=== PATIENT | female | born 1955 | race Caucasian/White ===

== ENCOUNTER 2020-07-23 09:29 | Outpatient (CLI) | payer BC, SELFPAY ==
--- NOTE | ~2020-07-23 | MM_ITS ---
EXAMINATION: MM screening yajaira BI w corbin HISTORY: Screening TECHNIQUE: Craniocaudal and mediolateral oblique 3-D tomosynthesis images were obtained and synthetic 2-D images were generated. CAD analysis was submitted and interpreted. COMPARISON: Comparison to multiple prior studies sequentially, with oldest reviewed study dated 09/2018. BREAST PARENCHYMAL COMPOSITION: There are scattered areas of fibroglandular density. FINDINGS: There is no evidence of suspicious mass, calcification, or architectural distortion to sugg est malignancy in either breast. There has been no suspicious interval change. IMPRESSION: 1. No mammographic evidence of malignancy. 2. Recommend routine screening mammography in one year. BI-RADS Category 1: Negative Reviewed, dictated and finalized at location A. PUSHER
== END 2020-07-23 09:30 | disposition home or self-care (01) ==
LOC: ANHIMG 09:32
PROVIDERS: PCP Family Medicine; Visit Provider Nurse Practitioner Obstetrics & Gynecology
DX: Z12.31 Encounter for screening mammogram for malignant neoplasm of breast (principal)
CPT/HCPCS: 77063; 77067

== ENCOUNTER 2020-08-20 13:25 | Outpatient (CLI) | payer BC, SELFPAY ==
--- NOTE | ~2020-08-20 | DEXA_ITS ---
Bone Density Report Name: Isa Yap Age: 65 Sex: Female Ethnicity: White Date of : 1955 Indication: postmenopausal; height loss; hysterectomy; Referring Provider: Luisito, Herlinda Hassan Study: Bone densitometry was performed. Exam Date: August 20, 2020 Accession number: [id number] Bone Density: Region BMD T-score Z-score Classification AP Spine (L2, L3, L4) 0.943 -1.2 0.5 Osteopenia Femoral Neck (Left) 0.566 -2.5 -1.1 Osteoporosis Total Hip (Left) 0.681 -2.1 -1.0 Osteopenia Total Hip Bilateral Avg 0.683 -2.1 -0.9 Osteopenia Femoral Neck (Right) 0.590 -2.3 -0.9 Osteopenia Total Hip (Right) 0.685 -2.1 -0.9 Osteopenia World Health Organization criteria for BMD impression classify patients as: Normal (T-score at or above -1.0), Osteopenia (T-score between -1.0 and -2.5), or Osteoporosis (T-score at or below -2.5). 10-year Fracture Risk: FRAX not reported because: Some T-score for Spine Total or Hip Total or Femoral Neck at or below -2.5 Clinical Information Provided by Patient: Smokes Has used the following medications: Evista (i.e. raloxifene), Vitamin D, Calcium Has the following medical conditions: Hysterectomy Patient maximum height was 68 Menopause Age: 41 No regular weight bearing exercise Drinks caffeinated beverages Onset of menses at age 14 Number of children 3 Impression: The patient has osteoporosis, based on the Left Femoral Neck T-score. The patient has risk factors, including: smoking. Discussion: INCREASED RISK OF FRACTURE. BONE DENSITY IS UNDESIRABLY LOW AT ONE OR MORE SKELETAL SITES, CONSISTENT WITH POSTMENOPAUSAL OSTEOPOROSIS. This patient's lowest T-score meets the World Health Organization's (WHO) criteria for osteoporosis at one or more sites (T-score -2.5 or below). In untreated patients, the risk of osteoporotic fracture increases approximately two-fold for each 1.0 SD decrease in T-score. Low bone density is not the only risk factor for fracture; also consider factors such as patient's age, frailty or poor health, risk of falling, risk of injury, previous osteoporotic fracture, family history of osteoporosis, cigarette smoking, low body weight, etc. Not everyone with low bone mineral density has osteoporosis; osteomalacia and other metabolic bone disorders should also be considered. Patients who have osteoporosis should be evaluated for specific diseases and conditions (secondary causes) that may cause or contribute to bone loss. The [place] [employer] Endocrinologists (AACE) and National Osteoporosis Foundation (NOF) recommend pharmacologic intervention for all postmenopausal women whose T-score is in this range. The patient should follow a healthful lifestyle (good nutrition with adequate calcium and vitamin D, and appropriate weight-bearing exercise). Fo
== END 2020-08-20 13:26 | disposition home or self-care (01) ==
LOC: ANHIMG 13:28
PROVIDERS: PCP Family Medicine; Visit Provider Nurse Practitioner Obstetrics & Gynecology
DX: Z78.0 Asymptomatic menopausal state (principal); M85.88 Other specified disorders of bone density and structure, other site; M81.0 Age-related osteoporosis without current pathological fracture; M85.852 Other specified disorders of bone density and structure, left thigh; M85.851 Other specified disorders of bone density and structure, right thigh
CPT/HCPCS: 77080

== ENCOUNTER 2021-10-02 14:50 | Outpatient (CLI) | payer MEDICARE, SELFPAY ==
--- NOTE | ~2021-10-02 | MM_ITS ---
EXAMINATION: MM screening yajaira BI w corbin HISTORY: Screening TECHNIQUE: Craniocaudal and mediolateral oblique 3-D tomosynthesis images were obtained and synthetic 2-D images were generated. CAD analysis was submitted and interpreted. COMPARISON: Comparison to multiple prior studies sequentially, with oldest reviewed study dated 07/2015. BREAST PARENCHYMAL COMPOSITION: The breasts are almost entirely fatty. FINDINGS: There is no evidence of suspicious mass, calcification, or architectural distortion to sugg est malignancy in either breast. There has been no suspicious interval change. IMPRESSION: 1. No mammographic evidence of malignancy. 2. Recommend routine screening mammography in one year. BI-RADS Category 1: Negative Reviewed, dictated and finalized at location A. N MILL WORKER
== END 2021-10-02 14:51 | disposition home or self-care (01) ==
LOC: ANHIMG 14:53
PROVIDERS: PCP Family Medicine; Visit Provider Nurse Practitioner Obstetrics & Gynecology
DX: Z12.31 Encounter for screening mammogram for malignant neoplasm of breast (principal)
CPT/HCPCS: 77063; 77067

== ENCOUNTER 2021-10-23 07:35 | Outpatient (CLI) | payer MEDICARE, SELFPAY ==
[2021-10-23 07:55] LABS: Basophils Absolute Auto 0.1 K/mm3 (0.0-0.1); Basophils Percent Auto 1.1 % (0.2-1.2); Eosinophils Absolute Auto 0.1 K/mm3 (0-0.3); Eosinophils Percent Auto 1.3 % (0-4.4); Hematocrit 44.5 % (37.0-47.0); Hemoglobin 14.7 g/dL (12.0-15.0); Immature Granulocyte Absolute 0.03 K/mm3 (0.00-0.031); Immature Granulocyte Percent A 0.4 % (0-0.5); Lymphocytes Absolute Auto 1.95 K/mm3 (0.9-3.2); Mean Corpuscular Hemoglobin 29.3 pg (26-34); Mean Corpuscular Volume 88.6 fl (80-100); Mean Platelet Volume 9.4 fl (7.4-10.4); Monocytes Absolute Auto 0.6 K/mm3 (0.1-0.6); Monocytes Percent Auto 7.9 % (2.6-8.5); Neutrophils Absolute Auto 4.8 K/mm3 (1.3-6.7); Neutrophils Percent Auto 63.3 % (45.5-73.1); Platelet Count Result 302 k/mm3 (150-375); Red Blood Count 5.02 M/mm3 (4.2-5.4); Red Cell Distribution Width 15.3 % (11.5-14.5); White Blood Count 7.5 K/mm3 (4.5-10.0)
[2021-10-23 08:15] LABS: Alanine Aminotransferase 17 U/L (4-35); Albumin Level 3.3 g/dL (3.5-5.1); Alkaline Phosphatase 122 U/L (38-126); Anion Gap 4 mmol/L (8-16); Aspartate Amino Transferase 25 U/L (14-36); Bilirubin,Total 0.2 mg/dL (0.2-1.3); Blood Urea Nitrogen 17 mg/dL (7-17); Calcium 8.5 mg/dL (8.4-10.2); Carbon Dioxide 30 mmol/L (22-30); Chloride 105 mmol/L (98-107); Cholesterol 210 mg/dL (0-200); Estimated Glomerular Filt Rate > 60; Glucose 97 mg/dL (65-110); HDL Direct 34 mg/dL; Potassium 3.8 mmol/L (3.4-5.0); Sodium 139 mmol/L (137-145); Triglycerides 173 mg/dL (<150)
[2021-10-23 08:26] LABS: LDL Cholesterol Direct 121 mg/dL
== END 2021-10-23 07:36 | disposition home or self-care (01) ==
LOC: ANHLAB 07:38
PROVIDERS: PCP Family Medicine; Visit Provider Physician Assistant Medical
DX: I10 Essential (primary) hypertension (principal); E78.2 Mixed hyperlipidemia
CPT/HCPCS: 36415; 80053; 80061; 84443; 85025

== ENCOUNTER 2022-03-10 10:06 | Outpatient (CLI) | payer MEDICARE, SELFPAY ==
[2022-03-10 10:34] LABS: Alanine Aminotransferase 18 U/L (6-35); Cholesterol 197 mg/dL (0-200); Creatine Kinase 44 U/L (30-135); HDL Direct 36 mg/dL; Triglycerides 194 mg/dL (<150)
[2022-03-10 10:45] LABS: LDL Cholesterol Direct 109 mg/dL
== END 2022-03-10 10:07 | disposition home or self-care (01) ==
LOC: ANHLAB 10:10
PROVIDERS: PCP Family Medicine; Visit Provider Nurse Practitioner Family
DX: E78.2 Mixed hyperlipidemia (principal)
CPT/HCPCS: 36415; 80061; 82550; 84460

== ENCOUNTER → 2022-04-02 10:36 | Outpatient (CLI) | payer MEDICARE, SELFPAY ==
--- NOTE | ~2022-04-02 | XR_ITS ---
EXAMINATION: XR knee RT 2V DATE: 04/02/2022 10:50 INDICATION: Right knee pain TECHNIQUE: Two views of the right knee were obtained. COMPARISON: None. FINDINGS: Alignment is normal. No fracture or osteochondral lesion. There is a moderate size knee blanca nt effusion. There is moderate patellofemoral and medial compartmental osteoarthritis. There is mild osteoarthritis of the lateral compartment. Calcified atherosclerosis is noted. IMPRESSION: 1. Tricompartmental osteoarthritis and moderate size knee joint effusion without acute osseous abnorm ality. Reviewed, dictated and finalized at location B. IMPRESSION: 1. Tricompartmental osteoarthritis and moderate size knee joint effusion withou t acute osseous abnormality.
== END ==
PROVIDERS: PCP Family Medicine; Visit Provider Nurse Practitioner Family
DX: M17.11 Unilateral primary osteoarthritis, right knee (principal); M25.461 Effusion, right knee
CPT/HCPCS: 73560

== ENCOUNTER 2022-11-30 13:40 | Outpatient (CLI) | payer MEDICARE, SELFPAY ==
--- NOTE | ~2022-11-30 | MM_ITS ---
EXAMINATION: MM screening yajaira BI w corbin HISTORY: Screening mammogram, family history of breast cancer in her mother. TECHNIQUE: Craniocaudal and mediolateral oblique 3-D tomosynthesis images were obtained and synthetic 2-D images were generated. CAD analysis was submitted and interpreted. COMPARISON: 10/02/2021, 07/23/2020, 06/26/2019 BREAST PARENCHYMAL COMPOSITION: The breasts are almost entirely fatty. FINDINGS: No suspicious mass, calcification, or architectural distortion are identified in either charlie ast to suggest malignancy. There has been no suspicious interval change. IMPRESSION: 1. No mammographic evidence of malignancy. 2. Recommend routine screening mammography in one year. BI-RADS Category 1: Negative Reviewed, dictated and finalized at location A.
== END 2022-11-30 13:41 | disposition home or self-care (01) ==
LOC: ANHIMG 13:43
PROVIDERS: PCP Family Medicine; Visit Provider Nurse Practitioner Obstetrics & Gynecology
DX: Z12.31 Encounter for screening mammogram for malignant neoplasm of breast (principal)
CPT/HCPCS: 77063; 77067

== ENCOUNTER → 2023-01-28 09:41 | Outpatient (CLI) | payer MEDICARE, SELFPAY ==
--- NOTE | ~2023-01-28 | CT_ITS ---
EXAMINATION: CT sinus wo con DATE: 01/28/2023 09:56 INDICATION: Chronic sinusitis TECHNIQUE: Computed tomography (CT) of the paranasal sinuses was performed without intravenous contra st. Coronal reconstructions were obtained. Iterative reconstruction technique was employed. The dose- length product was 419.24 mGy-cm. COMPARISON: None FINDINGS: Complete opacification of the left maxillary sinus which appears to be due to combination of peripher al mucosal thickening with small amount of associated calcification and more central lower density mu cous. There are associated thickened peripheral sclerotic rosa consistent with chronic sinusitis. Th ere is moderate thinning and medial bulging of the right maxillary sinus wall consistent with mucocel e. There is occlusion of the left ostiomeatal unit. The right ostiomeatal unit remains patent. No muc osal thickening throughout the remainder of the paranasal sinuses. Bilateral orbits are normal. Bilat eral mastoid air cells and middle ear cavities are clear. The brain appears unremarkable. IMPRESSION: 1. Chronic left maxillary sinusitis with mucocele which opacifies the entire sinus and with remodelin g and mild medial bulging of the medial wall. Reviewed, dictated and finalized at location B. IMPRESSION: 1. Chronic left maxillary sinusitis with mucocele which opacifies the entire si nus and with remodeling and mild medial bulging of the medial wall.
== END ==
PROVIDERS: PCP Family Medicine; Visit Provider Otolaryngology
DX: J32.0 Chronic maxillary sinusitis (principal)
CPT/HCPCS: 70486

== ENCOUNTER 2024-02-15 15:29 | Outpatient (CLI) | payer MEDICARE, SELFPAY ==
--- NOTE | ~2024-02-15 | MM_ITS ---
EXAMINATION: MM screening yajaira BI w corbin HISTORY: Screening TECHNIQUE: Craniocaudal and mediolateral oblique 3-D tomosynthesis images were obtained and synthetic 2-D images were generated. CAD analysis was submitted and interpreted. COMPARISON: Comparison to multiple prior studies sequentially, with oldest reviewed study dated 03/2017. BREAST PARENCHYMAL COMPOSITION: Not dense: There are scattered areas of fibroglandular density. FINDINGS: There is no evidence of suspicious mass, calcification, or architectural distortion to sugg est malignancy in either breast. There has been no suspicious interval change. IMPRESSION: 1. No mammographic evidence of malignancy. 2. Recommend routine screening mammography in one year. BI-RADS Category 1: Negative Reviewed, dictated and finalized at location B.
== END 2024-02-15 15:30 | disposition home or self-care (01) ==
LOC: ANHIMG 15:30
PROVIDERS: PCP Family Medicine; Visit Provider Family Medicine
DX: Z12.31 Encounter for screening mammogram for malignant neoplasm of breast (principal)
CPT/HCPCS: 77063; 77067

== ENCOUNTER 2024-06-29 07:15 | Outpatient (CLI) | payer MEDICARE, SELFPAY ==
[2024-06-29 07:59] LABS: Basophils Absolute Auto 0.1 K/mm3 (0.0-0.1); Basophils Percent Auto 0.7 % (0.2-1.2); Eosinophils Absolute Auto 0.1 K/mm3 (0-0.3); Eosinophils Percent Auto 1.6 % (0-4.4); Hematocrit 43.8 % (37.0-47.0); Hemoglobin 13.9 g/dL (12.0-15.0); Immature Granulocyte Absolute 0.04 K/mm3 (0.00-0.031); Immature Granulocyte Percent A 0.5 % (0-0.5); Lymphocytes Percent Auto 16.3 % (18.3-44.2); Mean Corpuscular HGB Conc 31.7 g/dl (32-36); Mean Corpuscular Hemoglobin 28.4 pg (26-34); Mean Corpuscular Volume 89.6 fl (80-100); Mean Platelet Volume 9.7 fl (7.4-10.4); Monocytes Absolute Auto 0.5 K/mm3 (0.1-0.6); Monocytes Percent Auto 6.9 % (2.6-8.5); Neutrophils Absolute Auto 5.5 K/mm3 (1.3-6.7); Platelet Count Result 312 k/mm3 (150-375); Red Blood Count 4.89 M/mm3 (4.2-5.4); Red Cell Distribution Width 15.9 % (11.5-14.5); White Blood Count 7.4 K/mm3 (4.5-10.0)
[2024-06-29 08:05] LABS: Alanine Aminotransferase 22 U/L (6-35); Albumin Level 3.5 g/dL (3.5-5.1); Alkaline Phosphatase 144 U/L (38-126); Anion Gap -1 mmol/L (4-12); Aspartate Amino Transferase 27 U/L (14-36); Bilirubin,Total 0.5 mg/dL (0.2-1.3); Blood Urea Nitrogen 14 mg/dL (7-17); Carbon Dioxide 32 mmol/L (22-30); Chloride 110 mmol/L (98-107); Cholesterol 231 mg/dL (0-200); Estimated Glomerular Filt Rate > 60; Glucose 100 mg/dL (65-110); HDL Direct 35 mg/dL; Sodium 141 mmol/L (137-145); Triglycerides 196 mg/dL (<150)
[2024-06-29 08:16] LABS: LDL Cholesterol Direct 142 mg/dL
== END 2024-06-29 07:16 | disposition home or self-care (01) ==
PROVIDERS: PCP Family Medicine; Visit Provider Nurse Practitioner Adult Health
DX: E78.2 Mixed hyperlipidemia (principal); I10 Essential (primary) hypertension; Z13.29 Encounter for screening for other suspected endocrine disorder
CPT/HCPCS: 36415; 80053; 80061; 84443; 85025

== ENCOUNTER 2025-03-08 09:31 | Outpatient (CLI) | payer MEDICARE, SELFPAY ==
--- NOTE | ~2025-03-08 | MM_ITS ---
EXAMINATION: MM screening yajaira BI w corbin HISTORY: Screening TECHNIQUE: Craniocaudal and mediolateral oblique 3-D tomosynthesis images were obtained and synthetic 2-D images were generated. CAD analysis was submitted and interpreted. COMPARISON: Comparison to multiple prior studies sequentially, with oldest reviewed study dated 05/26. BREAST PARENCHYMAL COMPOSITION: Not dense: There are scattered areas of fibroglandular density. FINDINGS: There is no evidence of suspicious mass, calcification, or architectural distortion to sugg est malignancy in either breast. There has been no suspicious interval change. IMPRESSION: 1. No mammographic evidence of malignancy. 2. Recommend routine screening mammography in one year. BI-RADS Category 1: Negative Reviewed, dictated and finalized at location A.
--- OUTSIDE RECORDS SUMMARY | 2025-03-08 09:37 | XMS_ITS | Encounter Summary ---
Author Organization [facility] Address [address] [place] [address] Phone Care Team Providers Care Farmworker Brooder Farm Name Role Phone James Mccartney MD Unavailable Chas Jeronimo MD Primary Care Provider [phone] Balaji Campbell MD Unavailable [phone] Encounter Details Date Type Department Care Team (Late st Contact Info) Description 09/23/2022 Treatment [facility] [address] [facility] [address] [place] [address] Cecilio Sanchez MD [address] [id number] Social History Tobacco Use Types Packs/Day Years Used Date Smoking Tobacco: Every Day Cigarettes 1 51.6 Started: 1972 Smokeless Tobacco: Never Alcohol Use Standard Drinks/Week Comments Yes 0 (1 standard drink = 0.6 oz pur e alcohol) social Comments No Sex and Gender Information Value Date Recorded Sex Assigned at Not on file Legal Sex Female 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 Gender Identity Not on file Sexual Orientation Not on file documented as of this encounter Plan of Treatment Not on file documented as of this encounter Visit Diagnoses Not on filedocumented in this encounter Care Teams Farmworker Brooder Farm Relationship Specialty Start Date End Date Chas Jeronimo MD [address] [place] [id number] PCP - General Family Medicine 09/18/18 James Mccartney MD [address] [place] [address] Referring Physician Obstetrics and Gynecology 09/18/18 Balaji Campbell MD [phone] [place] [address] Surgeon Colon and Rectal Surgery 07/07/22 documented as of this encounter
--- OUTSIDE RECORDS SUMMARY | 2025-03-08 09:37 | XMS_ITS | Encounter Summary ---
Author Organization [facility] Address [address] [place] [address] Care Team Providers Care Night Club Manager Name Role Phone Unavailable Primary Care Provider Unavailabl e Encounter Details Date Type Department Care Team (Late st Contact Info) Description 08/08/2024 Lab Requisition [facility] - DermPath Lab [address] [place] [phone] Chas Jeronimo MD [address] [place] [address] Social History Tobacco Use Types Packs/Day Years Used Date Smoking Tobacco: Never Assessed Comments Unknown Sex and Gender Information Value Date Recorded Sex Assigned at Not on file Legal Sex Female 2:43 PM TURNER MACHINE OPERATOR Gender Identity Not on file Sexual Orientation Not on file documented as of this encounter Plan of Treatment Not on file documented as of this encounter Procedures Procedure Name Priority Date/Time Associated Diagnosis Comments DERMATOPATHOLOGY Routine 08/07/2024 3:33 AM TURNER MACHINE OPERATOR documented in this encounter Results * DERMATOPATHOLOGY (08/07/2024 3:33 AM TURNER MACHINE OPERATOR) Case Report Dermatopathology Report Case: [id number] Authorizing Provider: Chas Jeronimo MD Collected: 08/07/2024 03:33 AM Ordering Location: [facility] Physician [facility] - Received: 08/08/2024 03:21 PM DermPath Lab Pathologist: Heide Gomez MD Specimen: Skin, left breast 12:35 PM TURNER MACHINE OPERATOR DERMATOPATHOLOGY LABORATORY Final Diagnosis Specimen A. SKIN, left breast: SEBORRHEIC KERATOSIS (L82.1) 12:35 PM TURNER MACHINE OPERATOR DERMATOPATHOLOGY LABORATORY at 1235 TURNER MACHINE OPERATOR Clinical History Changing Lesion Check margins 12:35 PM [facility] DERMATOPATHOLOGY LABORATORY Gross Description Specimen A: Received is one formalin filled container labeled with the patient's name and designated left breast. The specimen consists of a non-oriented ellipse of skin measuring [id number] mm. The epidermal surface is unremarkable. The margin is inked green. The 12 o'clock and 6 o'clock tips are submitted in cassette 1. The remainder of the ellipse is serially sectioned and submitted in cassette 2. Jar 0. 12:35 PM [facility] DERMATOPATHOLOGY LABORATORY Microscopic Description Specimen A. SKIN, left breast: Sections show an acanthotic lesion composed of relatively uniform keratinocytes. There is hyperkeratosis and pseudo horn cysts formation. 12:35 PM [facility] DERMATOPATHOLOGY LABORATORY Disclaimer An external and internal positive and negative controls are appropriate for the histochemical, immunohistochemical and immunofluorescence stain(s) in this case (if any), except where stated explicitly. The performance characteristics of the stain(s) cited in this report were developed and its performance characteristic determined by the Dermatopathology Laboratory at [facility], directed by Dr. Rory Wylie. These tests need not be, and therefore are not, approved by the [place] Food and Drug Administration. The tests are used for clinical purposes. Billing Codes Specimen Charges Stain Charges 89900 1 12:35 PM [facility] DERMATOPATHOLOGY LABORATORY Embedded Images 12:35 PM [facility] DERMATOPATHOLOGY LABORATORY Pathology/Cytolo gy TISSUE SPECIMEN FROM SKIN / Unknown 08/07/2024 3:33 AM TURNER MACHINE OPERATOR 08/08/2024 3:21 PM TURNER MACHINE OPERATOR us Chasjesús Jeronimo MD LAB - PATHOLOGY/CYTOLOGY CLARA SETHI Final Result DERMATOPATHOLOGY LABORATORY [facility] - Department of Dermatology [address] [phone] documented in this encounter Visit Diagnoses Not on filedocumented in this encounter
--- OUTSIDE RECORDS SUMMARY | 2025-03-08 09:37 | XMS_ITS | Encounter Summary ---
Author Organization [facility] Address [address] [place] [address] Phone Care Team Providers Care Auto Service Representative Name Role Phone James Mccartney MD Unavailable Chas Jeronimo MD Primary Care Provider Balaji Campbell MD Unavailable [phone] Encounter Details Date Type Department Care Team (Late st Contact Info) Description 08/20/2020 Orders Only [facility] Scanning, Provider Social History Tobacco Use Types Packs/Day Years Used Date Smoking Tobacco: Every Day Cigarettes 1 51.6 Started: 1972 Smokeless Tobacco: Never Alcohol Use Standard Drinks/Week Comments Yes 0 (1 standard drink = 0.6 oz pur e alcohol) social Comments No Sex and Gender Information Value Date Recorded Sex Assigned at Not on file Legal Sex 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 Gender Identity Not on file Sexual Orientation Not on file documented as of this encounter Plan of Treatment Not on file documented as of this encounter Procedures Procedure Name Priority Date/Time Associated Diagnosis Comments SCAN - RADIOLOGY/IMAGING 08/20/2020 documented in this encounter Results * SCAN - RADIOLOGY/IMAGING (08/20/2020) Anatomical Region Laterality Modality Other us Provider Scanning Final Result documented in this encounter Visit Diagnoses Not on filedocumented in this encounter Care Teams Auto Service Representative Relationship Specialty Start Date End Date Chas Jeronimo MD [address] [place] [address] PCP - General Family Medicine 09/18/18 James Mccartney MD [address] [facility] [place] [address] Referring Physician Obstetrics and Gynecology 09/18/18 Balaji Campbell MD [phone] [place] [address] Surgeon Colon and Rectal Surgery 07/07/22 documented as of this encounter
--- OUTSIDE RECORDS SUMMARY | 2025-03-08 09:37 | XMS_ITS | Clinical Summary ---
Author Organization [facility] Address [address] [place] [address] Care Team Providers Care New Grad Rn Name Role Phone James Mccartney MD Unavailable [phone] Chas Jeronimo MD Primary Care Provider Balaji Campbell MD Unavailable [phone] Allergies Active Allergy Reactions Criticality Noted Date Comments Doxycycline Nausea & Vomiting Low 07/04/2023 Levofloxacin Other (See comments) Low 10/05/2018 Chest heaviness Pheniramine Nausea & Vomiting Low 07/04/2023 Phenyltoloxamine Unknown Low 07/04/2023 Polyhistamine Ppa Unknown 10/05/2018 Medications loratadine (CLARITIN) 10 mg tabletIndicatio ns:Allergic Rhinitis Take 1 tablet (10 mg total) by mouth daily with breakfast Active montelukast (SINGULAIR) 10 mg tabletIndicatio ns:Allergic Rhinitis Take 1 tablet (10 mg total) by mouth nightly Active olmesartan-hydr ochlorothiazide (BENICAR HCT) 20-12.5 mg per tabletIndicatio ns:hypertension Take 1 tablet by mouth daily with breakfast Active pseudoephedrine (SUDAFED) 30 mg tabletIndicatio ns:Nasal Congestion Take 1 tablet (30 mg total) by mouth every 4 (four) hours as needed for congestion Active ascorbic acid (vitamin C) 1,000 mg tabletIndicatio ns:supplement Take 1 tablet (1,000 mg total) by mouth every morning Super C supplementL Vit A, C, D2, Zinc Active OREGANO OIL ORALIndications :supplement Take 1 tablet by mouth every morning Active multivitamin capsuleIndicati ons:Vitamin Deficiency Prevention Take 1 capsule by mouth every morning Centrum silver 50 plus Active glucosamine HCl 500 mg tablet Take 1 tablet by mouth every morning Joint health supplement with collagen Active oxyCODONE (ROXICODONE) 5 mg immediate release tabletIndicatio ns:Pain Take 1 tablet (5 mg total) by mouth every 4 (four) hours as needed for pain 5 tablet 4 Active Additional Information Patient not taking.Reported on 01/01/2025 naproxen (NAPROSYN) 500 mg tablet Take 1 tablet (500 mg total) by mouth daily 4 Active fluticasone propionate (FLONASE) 50 mcg/actuation nasal sprayIndication s:Chronic maxillary sinusitis Administer 1 spray into each nostril 2 (two) times a day 1 each 11 4 Active sodium, potassium & mag sulfates (Suprep Bowel Prep Kit) 17.5-3.13-1.6 gram recon solnIndications :Bowel Evacuation Drink first half of prep at 6:00 pm the night before procedure. Drink second half of prep 4 hours prior to leaving home for procedure. 354 mL 5 Active amLODIPine (NORVASC) 5 mg tablet Take 1 tablet (5 mg total) by mouth daily 4 Active acetaminophen-c odeine (TYLENOL with CODEINE #3) 300-30 mg per tablet Take 1 tablet by mouth 5 Active azelastine (ASTELIN) 137 mcg (0.1 %) nasal spray Administer 1 spray into each nostril 2 (two) times a day Use in each nostril as directed 60 mL 11 5 Active azithromycin (Zithromax Z-Moiz) 250 mg tablet Take 2 tablets the first day, then 1 tablet daily for 4 days. 6 tablet 5 Active Active Problems Problem Noted Date Diagnosed Date Screening for malignant neoplasm of colon 2024 Tobacco dependency 08/26/2023 Chronic maxillary sinusitis 06/10/2023 Rectal bleeding 09/19/2022 Age-related osteoporosis wit hout current pathological fracture 09/17/2022 Screen for colon cancer 10/19/2018 Overview (10/19/2018): Added automatically from request for surgery [id number] Colovaginal fistula 10/05/2018 Resolved Problems Problem Noted Date Diagnosed Date Resolved Date Malignant neoplasm of colon 10/31/2018 11/02/2018 Overview (10/31/2018): Added automatically from request for surgery [id number] Encounters Date Type Department Care Team Description 01/01/2025 10:00 AM CDT Office Visit [facility] Orthopaedic Surgery [address] [place] [address] Ale Benavides PA Primary osteoarthritis of right knee (Primary Dx) 12/11/2024 [facility] - [facility] ENT [address] [place] [address] [place] [address] Melissa Wright MD 12/07/2024 7:45 PM CDT - 12/07/2024 11:59 PM CDT Hospital Encounter [facility] [address] [place] [address] Sphenoid sinusitis, unspecified chronicity Discharge Disposition: Discharge to home or self care 12/07/2024 11:20 AM CDT Office Visit [facility] ENT [address] [place] [address] Melissa Wright MD Sphenoid sinusitis, unspecified chronicity (Primary Dx); Chronic maxillary sinusitis; Recurrent sinus infections; Tobacco dependency from Last 3 Months Surgical History Surgery Date Site/Laterality Comments HYSTERECTOMY 07/25/1995 - 07/24/1996 COLONOSCOPY 08/25/2018 - 09/21/2018 SECTION 07/25/1978 - 07/24/1979 SECTION 07/25/1982 - 07/24/1983 TUBAL LIGATION 07/25/1985 - 07/24/1986 SIGMOIDECTOMY 11/17/2018 Segmental small bowel resection, vaginal repair SINUS SURGERY 07/25/2023 - 08/24/2023 Medical History Medical History Date Comments Hypertension Allergic rhinitis Rectovaginal fistula 2013 Family history of complicati on of anesthesia Mother had awareness during prior surgery. [place] JOLLA (hard of hearing) Wears bila teral hearing aides Sinusitis 1960 Family History Medical History Relation Name Comments Allergies Brother yanni pandey Hearing loss Brother yanni pandey Heart disease Father Breast cancer Mother vi katherin Cancer Mother vi katherin Hip fracture Neg Hx Osteoporosis Neg Hx Relation Name Status Comments Brother yanni pandey Alive Father Mother vi katherin Social History Tobacco Use Types Packs/Day Years Used Date Smoking Tobacco: Every Day Cigarettes 1 51.6 Started: 1972 Smokeless Tobacco: Never Tobacco Cessation:Ready to Q uit: Not Asked; Counseling Given: Not Answered Alcohol Use Standard Drinks/Week Comments Yes 0 (1 standard drink = 0.6 oz pur e alcohol) social AUDIT-C Answer Date Recorded Q1: How often do you have a drink containing alc ohol? Monthly or less 09/17/2024 Q2: How many drinks containi ng alcohol do you have on a typical day when you are drinking? 1 or 2 09/17/2024 Q3: How often do you have si x or more drinks on one occasion? Never 09/17/2024 Personal Safety Answer Date Recorded Have you ever been in or are you currently in a harmful physical or emotional relationship or is someone making you feel afraid or unsafe? 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 Gender Identity Not on file Sexual Orientation Not on file Obstetrics History Comments S/p Hysterectomy ~1998 Last Filed Vital Signs Vital Sign Reading Time Taken Comments Blood Pressure 153/97 09/17/2024 10:20 AM ESTATE PLANNING COUNSELOR Pulse 93 09/17/2024 10:25 AM ESTATE PLANNING COUNSELOR Temperature 36.3 C (97.3 F) 09/17/2024 9:48 AM ESTATE PLANNING COUNSELOR Respiratory Rate 22 09/17/2024 10:25 AM ESTATE PLANNING COUNSELOR Oxygen Saturation 99% 09/17/2024 10:25 AM ESTATE PLANNING COUNSELOR Inhaled Oxygen Concentration - - Weight 87.1 kg (192 lb) 09/17/2024 7:45 AM ESTATE PLANNING COUNSELOR Height 170.2 cm (5' 7) 09/17/2024 7:45 AM ESTATE PLANNING COUNSELOR Body Mass Index 30.07 09/17/2024 7:45 AM ESTATE PLANNING COUNSELOR Plan of Treatment Health Maintenance Due Date Last Done Comments Breast Cancer Screening-Mammogram 1955 Depression Screening 1955 Hepatitis C Screening 1955 DTaP/Tdap/Td Vaccine (1 - Tdap) 1967 Hepatitis B Screening 1974 Pneumococcal vaccine 65+ (1 of 2 - PCV) 1975 Lung Cancer Screening 2006 Zoster Vaccine (1 of 2) 2006 Well Visit 65+ 2021 Osteoporosis Screening-Bone Density Scan 08/02/2024 08/02/2022 Influenza Vaccine (#1) 2025 Fall Risk Assessment 09/17/2025 09/17/2024 Colon Cancer Screening-Colonoscopy 09/17/20342024, 10/31/2018 Colon Cancer Screening-CT Colonography Discontinued , 10/31/2018 Colon Cancer Screening-DNA Stool Discontinued 09/17/19, 10/31/2018 Colon Cancer Screening-FIT Discontinued 09/17/2024, Colon Cancer Screening-Sigmoidoscopy Discontinued 08/26, 10/31/2018 Procedures Procedure Name Priority Date/Time Associated Diagnosis Comments OK ARTHROCENTESIS ASPIR&/INJ MAJOR JT/BURSA W/O US Routine 01/01/2025 10:00 AM CDT Primary osteoarthritis of right knee AEROBIC AND ANAEROBIC CULTURE AND GRAM STAIN Routine 12/07/2024 7:45 PM CDT Sphenoid sinusitis, unspecified chronicity COLONOSCOPY 09/17/2024 8:52 AM ESTATE PLANNING COUNSELOR DEXA AXIAL SKELETON BONE DENSITY 1 OR MORE SITES Schedule Routine, Read Routine (OP Routine) 08/02/2022 12:53 PM ESTATE PLANNING COUNSELOR Screening for osteoporosis from Last 3 Months or Most Recently Relevant to Health Maintenance Results * OK ARTHROCENTESIS ASPIR&/INJ MAJOR JT/BURSA W/O US (01/01/2025 10:00 AM CDT) Narrative Ale Benavides PA - 01/01/2025 10:00 AM CDT Ale Benavides PA 01/01/2025 11:03 AM Large Joint Injection: R knee Performed by: Ale Benavides PA Authorized by: Ale Benavides PA Large Joint Injection/Aspiration: Consent Given by: Patient Site marked: the procedure site was marked Verbal consent obtained: Yes Supporting Documentation: Indications: Pain Procedure Details: Location: Knee Site: R knee Prep: patient was prepped using a clean technique Needle Size: 21 G Approach: Anterolateral Ultrasound guided: No Fluroscopic guidance: No Medications: 30 mg hyaluronate sodium, cross-linked 30 mg/3 mL Patient tolerance: Patient tolerated the procedure well with no immediate complications Ale JEAN IN CLINIC/BEDSIDE OR DERABLES Final Result * (ABNORMAL) Aerobic and anaerobic culture and gram stain Abscess Sinus, sphenoid, right (12/07/2024 7:45 PM CDT) Direct Specimen Exam Stain: Abundant polymorphonuclear leukocytes seen. No organisms seen. Report Final Report: Rare Mixed microorganisms. Includes the following: Rare Streptococcus pneumoniae Moxifloxacin susceptibility results can be inferred from gatifloxacin susceptibility testing. (.) [facility] Organism STREPTOCOCCUS PNEUMONIAE [facility] Organism MIXED MICROORGANISMS. [facility] Abscess (Sinus, sphenoid, right) 12/07/2024 7:45 PM CDT 12/07/2024 8:33 PM CDT Narrative [facility] - 12/11/2024 10:08 AM CDT Testing performed by [facility] ([phone]) Specimens submitted from normally sterile body sites will have all bacterial morphotypes identified. Specimens that contain grossly mixed jermain and/or are from body sites that are not normally sterile will be examined for Staphylococcus aureus, Pseudomonas aeruginosa, beta-hemolytic strep, vancomycin-resistant Enterococcus, Bacteroides, Parabacteroides, Clostridium perfringens and fungus. If any of these are isolated, the organism will be reported. Current interpretive data was last revised on 2019. Organism Antibiotic Method Susceptibility Streptococcus pneumoniae Gatifloxacin (ZHEN) INTERPRETATION Susceptible Streptococcus pneumoniae Penicillin (ZHEN) - meningitis (ZHEN) INTERPRETATION Susceptible Streptococcus pneumoniae Penicillin (ZHEN) - non-meningitis (ZHEN) INTERPRETATION Susceptible Streptococcus pneumoniae Penicillin (ZHEN) - oral (ZHEN) INTERPRETATION Susceptible Streptococcus pneumoniae Azithromycin (ZHEN) INTERPRETATION Susceptible Streptococcus pneumoniae Tetracycline (ZHEN) INTERPRETATION Susceptible Streptococcus pneumoniae Trimethoprim with Sulfamethoxazole (ZHEN) INTERPRETATION Susceptible Streptococcus pneumoniae Ceftriaxone(ZHEN) - meningitis (ZHEN) INTERPRETATION Susceptible Streptococcus pneumoniae Ceftriaxone (ZHEN) - non-meningitis (ZHEN) INTERPRETATION Susceptible Streptococcus pneumoniae Vancomycin (ZHEN) INTERPRETATION Susceptible us Melissa Wright MD LAB MICROBIOLOGY - GENERAL ORDERABLES Final Result Performing Organization Address City/State/ZIP [place] Phone Number [facility] [place] [address] * Colonoscopy (09/17/2024 8:52 AM ESTATE PLANNING COUNSELOR) Anatomical Region Laterality Modality Other Narrative Procedure Note Balaji Campbell MD - 09/17/2024 8:52 AM CST ENDOSCOPY LAB Patient Name: Isa Pandey Procedure Date: 09/17/2024 8:52 AM Date of : 1955 Admit Type: Outpatient Age: 69 Gender: Female Attending MD: Balaji Campbell M.D. Room: [facility] ENDOSCOPY ROOM 02 Note Status: Finalized Procedure: Colonoscopy Indications: Last colonoscopy 5 years ago, Rectal bleeding Providers: Balaji Campbell M.D. Referring MD: Chas F. Schueler, M.D. Medicines: Monitored Anesthesia Care Complications: No immediate complications. Estimated Blood Loss: Estimated blood loss: none. Procedure: Pre-Anesthesia Assessment: - Immediately prior to administration ofmedications, the patient was re-assessed for adequacy to receive sedatives. The benefits, risks and alternatives of theprocedure and sedation were discussed and informed consentwas obtained. All questions were answered. Please referto the signed informed consent document in the medical record. The scope was passed under direct vision.The [id number] was introduced through the anusand advanced to the cecum, identified by appendiceal orifice and ileocecal valve. The colonoscopy was performed without difficulty. The patient tolerated the procedure well. The quality of the bowel preparation was evaluated using the BBPS (BostonBowel Preparation Scale) with scores of: Right Colon = 2 (minor amount of residual staining, small fragmentsof stool and/or opaque liquid, but mucosa seen well), Transverse Colon = 3 (entire mucosa seen well withno residual staining, small fragments of stool oropaque liquid) and Left Colon = 2 (minor amount ofresidual staining, small fragments of stool and/or opaque liquid, but mucosa seen well). The total BBPS score equals 7. The quality of the bowel preparation was good. The bowel preparation used was SUPREP viasplit dose instruction. Findings: The perianal and digital rectal examinations were normal. Two sessile polyps were found in the transverse colon. The polypswere 3 to 4 mm in size. These polyps were removed with a cold snare.Resection and retrieval were complete. To prevent bleeding after thepolypectomy, one hemostatic clip was successfully placed. There was no bleeding at the end of the procedure. A 2 mm polyp was found in the descending colon. The polyp wassessile. The polyp was removed with a jumbo cold forceps. Resection andretrieval were complete. There was evidence of a prior end-to-end colo-rectal anastomosis inthe recto-sigmoid colon. This was patent and was characterized by healthy appearing mucosa. The anastomosis was traversed. The exam was otherwise without abnormality on direct and retroflexion views. Impression: - Two 3 to 4 mm polyps in the transverse colon, removed with a cold snare. Resected and retrieved. Clip was placed. - One 2 mm polyp in the descending colon, removedwith a jumbo cold forceps. Resected and retrieved. - Patent end-to-end colo-rectal anastomosis, characterized by healthy appearing mucosa. - The examination was otherwise normal on directand retroflexion views. Recommendation: - Await pathology results. - Repeat colonoscopy in 5 years for surveillance. Balaji Campbell MD Balaji Campbell M.D. 09/17/2024 9:45:54 AM Number of Addenda: 0 Note Initiated On: 09/17/2024 8:52 AM us Balaji Campbell MD ENDOSCOPY PROCEDURES Fi nal Result * Dexa Axial Skeleton Bone Density 1 or 2 Site (08/02/2022 12:53 PM ESTATE PLANNING COUNSELOR) Anatomical Region Laterality Modality Body N/A Radiographic Nimo ging Narrative 08/04/2022 9:58 AM ESTATE PLANNING COUNSELOR Patient Name: Isa Pandey Date of : 1955 Date of scan: 08/02/2022 Bone mineral density was performed on a HoloMobile Location, IP Discovery Densitometer. Based on machine cross-calibration and precision studies the least significant changes of this densitometer is 0.024 g/cm2 at the spine, 0.020 g/cm2 at the total proximal femur, and 0.014g/cm2 at the forearm. HISTORY: This is a 67 y.o. postmenopausal female with a history of osteoporosis. She reports that she has been smoking cigarettes. She started smoking about 49 years ago. She has been smoking an average of 1 pack per day. She has never used smokeless tobacco. Currently on treatment with vitamin D and raloxifene (Evista) and previously treated with alendronate (Fosamax) and zoledronic acid (Reclast). INDICATIONS: Menopause status, treatment monitoring, and history of osteoporosis. FINDINGS: BONE MINERAL DENSITY OF THE LUMBAR SPINE Bone Mineral Density (BMD) of the lumbar spine was measured from L1-L4 and the average density was calculated to be 0.981 gm/cm2. This corresponds to a T-score (standard deviations from the mean of young adults) of -0.6. There is no previous study available for comparison. BONE MINERAL DENSITY OF THE PROXIMAL FEMUR Bone Mineral Density (BMD) of the left hip total was found to be 0.701 gm/cm2. This corresponds to a T-score standard deviations from the mean of young adults of -2.0. Femoral neck is 0.565 gm/cm2 with a T-score (standard deviations from the mean of young adults) of -2.6. There is no previous study available for comparison. BONE MINERAL DENSITY OF THE FOREARM Bone Mineral density (BMD) of the right proximal 1/3 of the radius measures 0.560 gm/cm2. This corresponds to a T-score (standard deviations from the mean of young adults) of -2.2. There is no previous study available for comparison. A forearm bone density study was performed in addition to the study because of forearm protocol. See attached detailed TBS report. SUMMARY: Bone mineral density shows evidence of osteoporosis and marked increase risk of fracture. ADDITIONAL COMMENTS: Postmenopausal Women and Men Over 50: Diagnostic criteria: Osteoporosis: BMD at or below -2.5 T-score; Osteopenia (low bone mass): BMD between -1.0 and -2.5 T-score. If the patient has a history of a fragility fracture, a fracture that occurred with trauma equivalent to a fall from a standing position or less, then the diagnosis is osteoporosis regardless of bone density. The history and data sections of the bone mineral density scan were prepared by Radha Santoyo(Melchor) SHEA who is accredited by the International Society of Clinical Densitometry. The overall patient assessment and scan interpretation were performed by Cecilio Sanchez MD who is certified by the International Society of Clinical Densitometry. [id number] us Cecilio Sanchez MD IMG DXA PROCEDURES Final Result from Last 3 Months or Most Recently Relevant to Health Maintenance Insurance MEDICARE AETNA SENIOR SUPPLEMENT MEDICARE AETNA SENIOR SUPPLEMENT Advance Directives For more information, please contact: [phone] * Full Code (Latest Code Status on File) Date Activated Date Inactivated Comments 09/17/2024 7:29 AM 09/17/2024 2:54 PM * Full Code Date Activated Date Inactivated Comments 11/17/2018 4:06 PM 11/20/2018 5:54 PM * Full Code Date Activated Date Inactivated Comments 10/31/2018 10:14 AM 10/31/2018 4:18 PM Care Teams New Grad Rn Relationship Specialty Start Date End Date Chas Jeronimo MD [address] [place] [address] PCP - General Family Medicine 09/18/18 James Mccartney MD [address] [place] [address] Referring Physician Obstetrics and Gynecology 09/18/18 Balaji Campbell MD [id number] [place] [address] Surgeon Colon and Rectal Surgery 07/07/22
--- OUTSIDE RECORDS SUMMARY | 2025-03-08 09:37 | XMS_ITS ---
Author Organization [facility] Address [address] [place] [address] Care Team Providers Care News Assistant Name Role Phone James Mccartney MD Unavailable [phone] Chas Jeronimo MD Primary Care Provider Balaji Campbell MD Unavailable [phone] Active Problems Problem Noted Date Diagnosed Date Screening for malignant neoplasm of colon 2024 Tobacco dependency 08/26/2023 Chronic maxillary sinusitis 06/10/2023 Rectal bleeding 09/19/2022 Age-related osteoporosis wit hout current pathological fracture 09/17/2022 Screen for colon cancer 10/19/2018 Overview (10/19/2018): Added automatically from request for surgery [id number] Colovaginal fistula 10/05/2018 Current Treatment and Therapy Plans No current plan information found. Other Current Plans Zoledronic Acid (Reclast) Infusion* Plan Start Date:09/17/2022 Plan Provider:Cecilio Sanchez MD Linked Problems Age-related osteoporosis wit hout current pathological fracture Treatment Medications No medications scheduled. Past Treatment and Therapy Plans No past plan information found. Lifetime Dose Tracking * Chemical Lifetime Dose Automatic Entry Manual Entr y DLP 810 mGycm 810 mGycm 0 mGycm Resolved Problems Problem Noted Date Diagnosed Date Resolved Date Malignant neoplasm of colon 10/31/2018 11/02/2018 Overview (10/31/2018): Added automatically from request for surgery [id number]
--- OUTSIDE RECORDS SUMMARY | 2025-03-08 09:38 | XMS_ITS | Clinical Summary ---
Author Organization [facility] Address [address] [place] [address] Care Team Providers Care Inspector [employer] Name Role Phone Unavailable Primary Care Provider Unavailabl e Source Comments [facility],non-owned Affiliates and Associated Physician Practices is amultiple site organization consisting of ambulatory clinics and hospital sitesin [place], [place], [place] and [place]. This disclosure is being madepursuant to the Care Everywhere program and may not contain all information available regarding this patient. 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 Gender Identity Not on file Sexual Orientation Not on file Plan of Treatment Health Maintenance Due Date Last Done Comments BONE DENSITY TESTING 1955 COLOGUARD (AGES 45-75) - COL ON CA SCREENING 1955 COLON MONITORING 1955 COLONOSCOPY - COLON CA SCREENING 1956 CT COLONOGRAPHY - COLON CA SCREENING 1955 Colorectal Cancer Screening 1955 FIT - COLON CA SCREENING 1955 FLEX SIG - COLON CA SCREENING 1955 LIPID TESTING 1955 MAMMOGRAM 1955 MEDICARE AWV 12 MONTHS 1955 HEPATITIS C SCREENING 06/14/1974 DTAP/TDAP/TD VACCINES (1 - Tdap) 1975 PNEUMOCOCCAL VACCINE 50+ (1 of 1 - PCV) 2006 ZOSTER VACCINE (1 of 2) 2006 COVID-19 VACCINE (1 - 2023-2 5 season) 2024 DEPRESSION SCREENING 07/25/2024 INFLUENZA VACCINE (#1) 2025 Respiratory Syncytial Virus (RSV) Vaccine Pt: or over 60 yrs (1 - 1-dose 75+ series) 2031 HEPATITIS B VACCINE Aged Out No longe r eligible based on patient's age to complete this topic HIB VACCINE Aged Out No longer eligi ble based on patient's age to complete this topic HPV VACCINE Aged Out No longer eligi ble based on patient's age to complete this topic MENINGOCOCCAL (Group B) VACC INE SHARED DECISION-MAKING Aged Out No longer eligibl e based on patient's age to complete this topic MENINGOCOCCAL GROUPS A/C/Y/W VACCINE Aged Out No longer eligible b ased on patient's age to complete this topic Insurance MEDICARE AETNA
--- OUTSIDE RECORDS SUMMARY | 2025-03-08 09:38 | XMS_ITS | Clinical Summary ---
Author Organization [facility] Address [facility] [place] [address] Care Team Providers Care Underwear Welter Name Role Phone Unavailable Primary Care Provider Unavailabl e Social History Tobacco Use Types Packs/Day Years Used Date Smoking Tobacco: Never Assessed Comments Unknown Sex and Gender Information Value Date Recorded Sex Assigned at Not on file Legal Sex Female 7:09 PM CDT Gender Identity Not on file Sexual Orientation Not on file Plan of Treatment Health Maintenance Due Date Last Done Comments Colorectal Cancer Screening Colonoscopy (10 Years) 1956 Hepatitis C 1974 DTaP, Tdap and Td Vaccines ( 1 - Tdap) 1975 Mammogram Screening 1996 Pneumococcal Vaccine: 50+ Ye ars (1 of 1 - PCV) 2006 Zoster Vaccines (1 of 2) 2006 Dexa Scan (General) 2021 COVID-19 Vaccine ( - 2023-2 5 season) 2024 RSV Immunization or 60+ Years (1 - 1-dose 75+ series) 2031 Meningococcal B Vaccine Aged Out No l onger eligible based on patient's age to complete this topic Meningococcal Vaccine Aged Out No meena iwona eligible based on patient's age to complete this topic RSV Immunizations Under 20 Months Aged Out No longer eligible based on patient's age to complete this topic
== END 2025-03-08 09:32 | disposition home or self-care (01) ==
LOC: ANHIMG 09:33
PROVIDERS: PCP Family Medicine; Visit Provider Nurse Practitioner Adult Health
DX: Z12.31 Encounter for screening mammogram for malignant neoplasm of breast (principal)
CPT/HCPCS: 77063; 77067